=== PATIENT | male | born 1965 | race Caucasian/White ===

== ENCOUNTER 2019-07-10 09:22 | Outpatient (REF) | payer BC, SELFPAY ==
[2019-07-10 22:54] LABS: BUN 23 mg/dL (7-18); CREATININE 1.13 mg/dL (0.70-1.30); Calcium 9.1 mg/dL (8.5-10.1); Calculated LDL 196 mg/dL; Chloride 104 mmol/L (98-107); Cholesterol 278 mg/dL (50-200); Glucose 135 mg/dL (70-100); HDL Cholesterol 54 mg/dL (40-60); Potassium 4.4 mmol/L (3.5-5.1); Sodium 140 mmol/L (136-145); Triglyceride 142 mg/dL (30-150)
[2019-07-14 10:53] LABS: PSA, Screening 2.5 ng/ml (0-3.5)
== END 2019-07-10 09:42 ==
LOC: NCHCN 09:22
PROVIDERS: PCP Specialist/Technologist Athletic Trainer; Visit Provider Specialist/Technologist Athletic Trainer
DX: Z00.00 Encounter for general adult medical examination without abnormal findings (principal); Z13.220 Encounter for screening for lipoid disorders; Z13.228 Encounter for screening for other metabolic disorders; Z12.5 Encounter for screening for malignant neoplasm of prostate
CPT/HCPCS: 80048; 80061; 84153

== ENCOUNTER 2019-07-16 09:16 | Outpatient (REF) | payer BC, SELFPAY ==
[2019-07-16 20:16] LABS: Hemoglobin A1C 6.1 % (4.5-6.2)
== END 2019-07-16 09:36 ==
LOC: NCHCN 09:16
PROVIDERS: PCP Specialist/Technologist Athletic Trainer; Visit Provider Specialist/Technologist Athletic Trainer
DX: Z79.899 Other long term (current) drug therapy (principal)
CPT/HCPCS: 83036

== ENCOUNTER 2019-10-03 09:53 | Outpatient (REF) | payer BC, SELFPAY ==
[2019-10-03 19:46] LABS: ALT 42 U/L (16-63); AST 28 U/L (15-37); Albumin 4.1 g/dL (3.4-5.0); Alkaline Phosphatase 110 U/L (46-116); Bilirubin, Total 0.6 mg/dL (0.2-1.0); LDL CHOLESTEROL 84 mg/dL (<100); Total Protein 7.4 g/dL (6.4-8.2)
[2019-10-03 20:09] LABS: Bilirubin, Direct 0.13 mg/dL (0.00-0.20); Creatine Kinase 134 U/L (39-308)
== END 2019-10-03 10:13 ==
LOC: NCHCN 09:53
PROVIDERS: PCP Specialist/Technologist Athletic Trainer; Visit Provider Specialist/Technologist Athletic Trainer
DX: E78.5 Hyperlipidemia, unspecified (principal); Z51.81 Encounter for therapeutic drug level monitoring
CPT/HCPCS: 80076; 82550; 83721

== ENCOUNTER 2020-04-01 11:40 | Outpatient (REF) | payer BC, SELFPAY ==
[2020-04-01 19:18] LABS: Calculated LDL 163 mg/dL (<100); Cholesterol 243 mg/dL (<200); HDL Cholesterol 64 mg/dL (40-60); Triglyceride 82 mg/dL (<150)
[2020-04-05 12:26] LABS: Lyme Ab w Rflx to Lyme Confirm Negative (Negative)
[2020-04-05 17:21] LABS: Anaplasma phagocytophilum Negative (Negative); B. miyamotoi PCR Negative (Negative); Babesia divergens/MO-1 Negative (Negative); Babesia duncani Negative (Negative); Babesia microti Negative (Negative); Ehrlichia chaffeensis Negative (Negative); Ehrlichia ewingii/canis Negative (Negative); Ehrlichia muris eauclairensis Negative (Negative)
== END 2020-04-01 12:00 ==
LOC: NCHCN 11:40
PROVIDERS: PCP Specialist/Technologist Athletic Trainer; Visit Provider Nurse Practitioner Family
DX: E78.5 Hyperlipidemia, unspecified (principal); Z00.00 Encounter for general adult medical examination without abnormal findings
CPT/HCPCS: 80061; 87798; 86618

== ENCOUNTER 2020-05-19 15:59 | Outpatient (REF) | payer BC, SELFPAY ==
[2020-05-19 21:39] LABS: Abs Immature Grans 0.05 10^3/uL (0.0-0.06); Absolute Basophil Count 0.04 10^3/uL (0.0-0.2); Absolute Eosinophil Count 0.13 10^3/uL (0.0-0.7); Absolute Lymphocyte Count 1.46 10^3/uL (1.2-3.4); Absolute Monocyte Count 0.58 10^3/uL (0.1-0.8); Absolute Neutrophil Count 7.72 10^3/uL (1.2-6.7); Basophils % 0.4; Eosinophils % 1.3; HCT 46.2 % (40.0-50.0); HGB 16.4 g/dL (13.5-17.5); Immature Grans % 0.5; Lymphocytes % 14.6; MCH 32.9 pg (27.0-33.0); MCHC 35.5 % (32.0-36.0); MCV 92.8 fL (80-95); MPV 9.7 fL (8.0-11.0); Monocytes % 5.8; Neutrophils % 77.4; Nucleated RBC 0 %; Platelet Count 329 10^3/uL (130-400); RBC 4.98 10^6/uL (4.36-5.78); RDW 11.6 % (11.8-14.1); RDW-SD 39.4 fL; WBC 9.98 10^3/uL (4.4-10.8)
[2020-05-19 22:00] LABS: ALT 57 U/L (16-63); AST 31 U/L (15-37); Albumin 4.2 g/dL (3.4-5.0); Alkaline Phosphatase 102 U/L (46-116); BUN 18 mg/dL (7-18); Bilirubin, Total 0.4 mg/dL (0.2-1.0); CREATININE 0.96 mg/dL (0.70-1.30); Calcium 9.6 mg/dL (8.5-10.1); Chloride 100 mmol/L (98-107); Glucose 121 mg/dL (74-106); Potassium 4.1 mmol/L (3.5-5.1); Sodium 139 mmol/L (136-145); TSH (W/Ref FT4) 1.03 uIU/mL (0.36-3.74); Total Protein 7.7 g/dL (6.4-8.2)
== END 2020-05-19 16:19 ==
LOC: NCHCN 15:59
PROVIDERS: PCP Specialist/Technologist Athletic Trainer; Visit Provider Physician Assistant Medical
DX: R42 Dizziness and giddiness (principal); R00.1 Bradycardia, unspecified
CPT/HCPCS: 80053; 84443; 85025

== ENCOUNTER 2020-06-01 05:22 | Outpatient (CLI) | payer BC, SELFPAY | END 2020-06-01 05:42 | PROVIDERS: PCP Specialist/Technologist Athletic Trainer; Visit Provider Nurse Practitioner Family | DX: R00.1 Bradycardia, unspecified (principal); I49.1 Atrial premature depolarization; I49.3 Ventricular premature depolarization | CPT/HCPCS: 93225 ==

== ENCOUNTER 2020-06-04 11:54 | Outpatient (CLI) | payer BC, SELFPAY ==
--- NOTE | 2020-06-04 14:06 | W.HOLTRPT ---
Date of service: 06/04/20 Time of Service: 14:07 Holter Monitor Report Referring Provider:: Tenzin Indications:: Bradycardia Holter Monitor Note: This is a 48-hour Holter monitor ordered for indication of bradycardia. ?Patient was in normal sinus rhythm for the majority recording with an average heart rate of 69 bpm (44 bpm - 128 bpm) ?The patient had 0 episodes of supraventricular tachycardia nor any episodes of ventricular tachycardia. ?There were 6 total PACs and no PVCs. ?There were no episodes of atrial fibrillation no pauses greater then 3 seconds no evidence of high degree heart block.
== END 2020-06-04 12:14 ==
PROVIDERS: PCP Specialist/Technologist Athletic Trainer; Visit Provider Nurse Practitioner Family
DX: R00.1 Bradycardia, unspecified (principal); I49.1 Atrial premature depolarization; I49.3 Ventricular premature depolarization
CPT/HCPCS: 93226

== ENCOUNTER 2021-02-17 17:16 | Outpatient (REF) | payer BC, SELFPAY ==
[2021-02-17 19:47] LABS: Hemoglobin A1C 6.3 % (<5.7)
[2021-02-17 19:49] LABS: Anion Gap 10.3 mmol/L (3-11); BUN 18 mg/dL (7-18); CO2 25.7 mmol/L (21.0-32.0); Calcium 9.3 mg/dL (8.5-10.1); Calculated LDL 183 mg/dL (<100); Chloride 100 mmol/L (98-107); Cholesterol 278 mg/dL (<200); Glucose 106 mg/dL (74-106); HDL Cholesterol 63 mg/dL (40-60); Potassium 3.6 mmol/L (3.5-5.1); Sodium 136 mmol/L (136-145); Triglyceride 161 mg/dL (<150)
== END 2021-02-17 17:17 | disposition home or self-care (01) ==
LOC: NCHCN 17:16
PROVIDERS: PCP Specialist/Technologist Athletic Trainer; Visit Provider Nurse Practitioner Family
DX: Z00.00 Encounter for general adult medical examination without abnormal findings (principal); Z13.1 Encounter for screening for diabetes mellitus; Z13.220 Encounter for screening for lipoid disorders; Z13.228 Encounter for screening for other metabolic disorders
CPT/HCPCS: 80048; 80061; 83036

== ENCOUNTER 2022-02-17 19:09 | Outpatient (REF) | payer BC, SELFPAY ==
[2022-02-17 15:50] LABS: Hemoglobin A1C 6.7 % (<5.7)
[2022-02-17 16:09] LABS: Anion Gap 11.6 mmol/L (3-11); BUN 17 mg/dL (7-18); CO2 26.4 mmol/L (21.0-32.0); Calcium 9.4 mg/dL (8.5-10.1); Calculated LDL 107 mg/dL (<100); Chloride 102 mmol/L (98-107); Cholesterol 194 mg/dL (<200); Glucose 143 mg/dL (74-106); HDL Cholesterol 67 mg/dL (40-60); Potassium 3.8 mmol/L (3.5-5.1); Sodium 140 mmol/L (136-145); Triglyceride 103 mg/dL (<150)
== END 2022-02-17 19:10 | disposition home or self-care (01) ==
LOC: NCHCN 19:09
PROVIDERS: PCP Specialist/Technologist Athletic Trainer; Visit Provider Nurse Practitioner Family
DX: Z00.00 Encounter for general adult medical examination without abnormal findings (principal); I10 Essential (primary) hypertension; E78.5 Hyperlipidemia, unspecified; R73.03 Prediabetes
CPT/HCPCS: 80048; 80061; 83036

== ENCOUNTER → 2022-02-24 00:39 | Outpatient (CLI) | payer BC, SELFPAY ==
--- NOTE | 2022-02-24 09:12 | DI.RAD_ITS ---
Exam(s) XR HAND RT COMPLETE EXAM: XR HAND RT COMPLETE CLINICAL HISTORY: RT THUMB PAIN, M79.644. TECHNIQUE: 2D digital imaging was performed of the right hand. Three images were obtained. AP, late ral and oblique views were obtained. COMPARISON: No exams were available for comparison FINDINGS: BONES: No acute fracture is present. No bony destructive lesion is seen. JOINTS: No dislocation present. There are marked degenerative changes seen at the 1st CMC joint with joint space narrowing, subchondral sclerosis and cysts and hypertrophic changes. More mild degenerat don changes are seen in the interphalangeal joints of the hand with joint space narrowing and periart icular spurring present. The findings are most marked at the DIP joint of the middle finger. SOFT TISSUE: Normal. 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 DATA REPOSITORY: RADIATION DOSE DELIVERED:
== END ==
PROVIDERS: PCP Specialist/Technologist Athletic Trainer; Visit Provider Nurse Practitioner Family
DX: M79.641 Pain in right hand (principal); M79.644 Pain in right finger(s); M18.11 Unilateral primary osteoarthritis of first carpometacarpal joint, right hand; M25.541 Pain in joints of right hand
CPT/HCPCS: 73130

== ENCOUNTER 2022-07-13 07:04 | Day surgery (SDC) | payer BC, SELFPAY ==
--- NOTE | 2022-07-13 05:34 | W.PM.DSUDISC ---
Discharge Plan Disposition Patient Disposition: HOME Condition: Good Discharge Details Reason For Visit: Screening colonoscopy Attending Provider: Shalom Merrill Primary Care Provider: Elvira Barker Home Meds and New Rx's Prescriptions: Continued chlorthalidone 25 mg tablet 25 mg PO DAILY atorvastatin 40 mg tablet 40 mg PO DAILY amlodipine 10 mg tablet 10 mg PO DAILY losartan 50 mg tablet 50 mg PO DAILY Discontinued bisacodyl [Dulcolax (bisacodyl)] 5 mg tablet,delayed release (DR/EC) 5 mg PO ONCE Qty: 4 0RF Rx Instructions: Take according to provider's instructions for colonoscopy prep. polyethylene glycol 3350 17 gram/dose powder 17 g PO ONCE Qty: 238 0RF Rx Instructions: To be taken as directed by prescriber's office for colonoscopy prep. Discharge Instructions Instructions: Diverticulosis (DC), Colorectal Polyps (GEN) Additional Instructions: 1. If tolerated, consume a soft, low fiber diet for 1-2 days. 2[address] Do not drive, drink alcohol, operate machinery, make critical decisions, or do activities that require coordination or balance for 24 hours. 3. Because air was put into your colon during the procedure, expelling air from your rectum (passing gas or farting) is normal. 4. You may not have a bowel movement for 1-3 days because of the colonoscopy prep. This is normal. 5. Go directly to the emergency room if you notice any of the following: Develop chills (warm to touch), or if you have a thermometer and your temperature is above 101 Difficulty breathing or difficultly swallowing Persistent vomiting Severe abdominal pain, other than gas cramps Severe chest pain Black, tarry stools Any bleeding ? exceeding one tablespoon 6. Call your physician if the site where your intravenous was started becomes red, swollen, painful, and warm to touch. 7. Your physician has reviewed your pre-procedure medications. Please continue to take those medications as previously ordered. You will be given specific information/education regarding any changes to your medications before leaving. Activity:: Activity as Tolerated Diet:: As Tolerated Discharge Orders Discharge Orders: Discharge Order (Routine); Ordered 07/13/22 Ordered By: Shalom Merrill DS: Diagnosis Discharge Diagnosis (1) Colon polyp: Status: Acute Asessment and Plan: I will contact you with results of the biopsy
--- NOTE | 2022-07-13 05:36 | W.COLOREPORT ---
Colonoscopy Report Date of procedure: 07/13/22 Pre-op diagnosis general: Screening colonoscopy routine health maintenance Post-op diagnosis procedure note: other (Diverticulosis, colorectal) Procedure: Screening colonoscopy Surgeon: Shalom Merrill Anesthesia Type: General:No Airway Estimated blood loss (mL): 30 Pathology: other (Cecal polyps x2, colorectal polyp at 75 cm) Complications: None Disposition: same day Indications: Charles is a 57-year-old male here for his screening colonoscopy Prep: Miralax/Dulcolax Procedure Start Time: 08:14 Procedure End Time: 08:40 Retraction Time: 18 Procedure Description: After the induction of monitored anesthetic care, and with the patient in left lateral decubitus position, I began by performing an external anorectal exam.? Perineum and skin were normal, as was the anal verge.? There was no evidence of external hemorrhoids.? Next, I performed a digital rectal exam.? I did not appreciate any abnormal findings.? Next, I advanced a colonoscope into the rectal vault.? I performed retroflexion.? I did not see signs of pathologic internal hemorrhoids.? Using insufflation, I then advanced the colonoscope beyond the rectal folds and into the sigmoid colon before advancing towards the cecum.? There was moderate sigmoid diverticulosis. the quality of the prep was at.? The scope was noted to be in the cecum by identification of the ileocecal valve and appendiceal orifice.? Adjacent to the ileocecal valve I identified 2 cecal polyps. The first was approximately 1 cm. I removed this with cold biopsy forceps. There was no bleeding. It was a bit pedunculated. The second polyp was more sessile. It was approximately 1 and half centimeters by 1 and half centimeters. I retrieved this using hot snare. There was no bleeding. I then began withdrawing the colonoscope using repeated irrigation as necessary for full evaluation of the colonic mucosa. Around 75 cm from the anal verge I identified a 0.5 cm polyp. ?It appeared sessile in character. ?I was able to remove this with a cold forcep. ?I examined the site, and there was minimal bleeding. ?Once this was completed, I continued to withdraw the scope and examine the remainder of the colonic mucosa.?Once the scope was withdrawn to the level of the rectum, great care was taken to examine portions of the rectal folds.? Finally, the scope was withdrawn and the patient was brought to the same-day surgery recovery unit as the anesthetic wore off. ?The findings and instructions were shared with the patient prior to discharge.
[2022-07-13 07:23] VITALS: BP 122/85; PULSE 60; RESP 16; TEMP 36.4; O2SAT 97
--- NOTE | 2022-07-13 07:33 | W.ANESPRE ---
General Info Date of Service Date Performed: 07/13/22 Height: 5 ft 9 in Weight: 94.2 kg Body Mass Index (BMI): 30.7 Surgical Procedure: Operation Date: 07/13/22 08:20 Proposed Procedure Side Surgeon p Colonoscopy Shalom Merrill MD Meds Allergies and Home Medications Allergies Allergy/AdvReac Type Severity Reaction Status Date / Time lisinopril Allergy Intermediate Verified 07/13/22 07:29 Home Medication Medication Instructions Recorded amlodipine 10 mg tablet 10 mg PO DAILY 02/23/22 atorvastatin 40 mg tablet 40 mg PO DAILY 02/23/22 chlorthalidone 25 mg tablet 25 mg PO DAILY 02/23/22 losartan 50 mg tablet 50 mg PO DAILY 02/23/22 Current Visit Medications: Current Medications Generic Name Dose Route Start Last Admin Trade Name Freq PRN Reason Stop Dose Admin Hyoscyamine Sulfate 0.125 mg 07/13/22 05:36 Hyoscyamine 0.125 Mg Sl/Oral/Chew SL DIRECTED PRN Ringer's Solution 1,000 mls @ 80 mls/hr 07/13/22 06:00 IV 08/11/22 23:59 [facility] IV Miscellaneous Supplies 1 each 07/13/22 06:00 Iv Access IV 08/11/22 23:59 DIRECTED ÁNGEL Ondansetron HCl 4 mg 07/13/22 05:36 Ondansetron 4 Mg/2 Ml Vial IVP Q4H PRN PRN Nausea / Vomiting Sodium Chloride 0 ml 07/13/22 06:00 Normal Saline Flush 10 Ml Syr IV 08/11/22 23:59 PRN PRN Sodium Chloride 0 ml 07/13/22 06:00 Normal Saline 10 Ml Vial IJ 08/11/22 23:59 DIRECTED PRN Sterile Water 0 ml 07/13/22 06:00 Water,Injection,Sterile 10 Ml Vial IJ 08/11/22 23:59 DIRECTED PRN PFSH Active Problems Active Problems: Problem Status Onset Code Colon polyp Bradycardia R00.1 Screening for colon cancer Z12.11 Medical History Medical History (Updated 07/13/22 @ 07:29 by Dinorah Burks) BPPV (benign paroxysmal positional vertigo) Bright red blood per rectum Community acquired pneumonia Dizziness Erythema Erythema chronicum migrans History of prediabetes Hx of adenomatous polyp of colon Hyperlipidemia Hypertension Low back pain Medication monitoring encounter Rhinorrhea Stress at work Thumb pain Tooth abscess 2 teeth removed; 9/22 Umbilical hernia Vertigo Vision changes Surgical History Surgical History Colonoscopy - IV Sedation Repair of umbilical hernia Vasectomy Tobacco Smoking/Tobacco Use Status: Current every day Tobacco Type: smokeless tobacco Alcohol Alcohol Intake: current Alcohol intake frequency: 0-2 drinks per day Alcohol type: beer Substance Use Substance use: Never Substance use type: does not use Vital Signs and Lab Results Vital Signs Most Recent Vital Signs in EMR: Most Recent Vital Signs Temp Pulse Resp BP Pulse Ox 36.4 C L 60 16 122/85 97 07/13/22 07:23 07/13/22 07:23 07/13/22 07:23 07/13/22 07:23 07/13/22 07:23 Lab Results Blood Type / Crossmatch: No Data to Display Complete Blood Count: No Data to Display Complete Metabolic Panel: No Data to Display Liver Function Panel: No Data to Display Coagulation Panel: No Data to Display Cardiac Panel: No Data to Display Arterial Blood Gas: No Data to Display Venous Blood Gas: No Data to Display Pancreas Panel: No Data to Display Thyroid Panel: No Data to Display Infectious Disease: No Data to Display Blood Cultures: No Data to Display Toxicology Panel: No Data to Display Anesthesia Assessment and Plan Anesthesia History Personal History: No History of Anesthesia Complications Family History: No Family History of Anesthesia Complications Exercise Tolerance Exercise Tolerance: Metabolic Equivalents>4 Pertinent Negatives Pertinent Negatives: No Symptoms of GERD, No Major Cardiovascular Symptoms or Complaints, No Major Pulmonary Symptoms or Complaints and No History of CVA/TIA Cardiac & Pulmonary Exam Cardiac Exam: Normal S1/S2 Heart Sounds Pulmonary Exam: Clear Bilateral Breath Sounds Implantable Cardiac Device Does patient have a Pacemaker or an ICD?: No Airway Exam Known Difficult Airway: No Mallampati Class: 1 Mouth Opening: Normal (> 3cm) Thyromental Distance: Greater than 3 cm Neck Range of Motion: Full ROM Neck Circumference: Normal Teeth Condition: Normal Dentition Airway Comments: 2 teeth top left pulled last month due to abscess. Antibiotic regimen completed. ASA Classification ASA Score: ASA 2 Emergency Case?: No NPO Status NPO Status: NPO Clears >2 hours, Solids >8 hours Anesthesia Plan Resuscitation Status: Full Code Anesthesia Technique: General Anesthesia Airway Planned: Natural Airway Monitors Used: Standard Monitors Preoperative Comments:: Uses snuff, none today.
[2022-07-13] MEDS: Lactated Ringers 1,000 ML 80 ML IV (07:40)
[2022-07-13 07:46] VITALS: BMI 30.7
--- NOTE | 2022-07-13 08:25 | BOWEL_PTH ---
PATIENT: Charles Castro LOC: [facility] U#:[id number] AGE/SX: 57/M ROOM: RE07/13/[address]: Shalom Merrill MD : [id number] BED: DIS: 07/13/2022 SPEC #: [id number] RECD: 07/13/22 12:43 STATUS: DELIO RE #: [id number] TRENT: 07/13/22 08:[address]: Shalom Merrill DEPT: Surgical Specimen RECD BY: Rupa Lopez ENTERED: 07/13/22 12:45 SP TYPE: Bowel OTHR DR: Elvira Barker Tissues: 1 - BIOPSY BOWEL 2 - BIOPSY BOWEL 3 - BIOPSY BOWEL Procedures: GROSS AND MICRO LEVEL 4 Comments: [id number]
[2022-07-13 08:45] VITALS: BP 108/75; PULSE 59; RESP 16; TEMP 36.3; O2SAT 92
--- NOTE | 2022-07-13 09:11 | W.ANESPOSTOP ---
Postoperative Evaluation Date, Time and Location Date Performed: 07/13/22 Time Performed: 08:55 Patient Location: Day Surgery Unit Vital Signs Most Recent Imported Vital Signs: Most Recent Vital Signs Temp Pulse Resp BP Pulse Ox 36.3 C L 59 L 16 108/75 92 07/13/22 08:45 07/13/22 08:45 07/13/22 08:45 07/13/22 08:45 07/13/22 08:45 Pain Score Most Recent Pain Score: Most Recent Pain Score Pain Level 0 07/13/22 07:23 Assessment Mental Status: Awake (Alert & Oriented to Patient Baseline) Airway and Respiratory Function: Patent airway with normal (patient baseline) respiratory exam Cardiovascular Function: Hemodynamically Stable Hydration Status: Adequately Hydrated Nausea & Vomiting: No Nausea or Vomiting Pain: Pt. Denies Any Pain Peripheral Nerve Block: Patient did not receive a nerve block
[2022-07-13 09:15] VITALS: BP 139/85; PULSE 59; RESP 16; TEMP 36.2; O2SAT 96
== END 2022-07-13 09:30 | disposition home or self-care (01) ==
PROVIDERS: PCP Nurse Practitioner Family; Visit Provider Surgery
PROC: 0DJD8ZZ Inspection of Lower Intestinal Tract, Via Natural or Artificial Opening Endoscopic (ICD-10-PCS; CPT 45378; principal; 2022-07-13 08:15)
DX: Z12.11 Encounter for screening for malignant neoplasm of colon (principal); Z86.010 Personal history of colon polyps; K57.30 Diverticulosis of large intestine without perforation or abscess without bleeding; K63.5 Polyp of colon
CPT/HCPCS: 45385; 45380; 88305

== ENCOUNTER 2022-07-27 14:19 | Outpatient (REF) | payer BC, SELFPAY ==
[2022-07-27 15:24] LABS: Hemoglobin A1C 6.7 % (<5.7)
[2022-07-27 15:58] LABS: ALT 51 U/L (16-63); AST 32 U/L (15-37)
== END 2022-07-27 14:20 | disposition home or self-care (01) ==
LOC: NCHCN 14:19
PROVIDERS: PCP Nurse Practitioner Family; Visit Provider Nurse Practitioner Family
DX: R73.03 Prediabetes (principal); R74.8 Abnormal levels of other serum enzymes; M72.2 Plantar fascial fibromatosis; M79.644 Pain in right finger(s)
CPT/HCPCS: 83036; 84450; 84460

== ENCOUNTER 2022-09-05 10:26 | Outpatient (CLI) | payer BC, SELFPAY ==
--- NOTE | 2022-09-05 11:14 | DI.RAD_ITS ---
Exam(s) XR CHEST 2V PA LATERAL EXAM: XR CHEST 2V PA LATERAL CLINICAL HISTORY: COUGH, R05.8; COVID-19 INFECTION, U07.1 TECHNIQUE: 2D digital imaging was performed of the chest. Two images were obtained. PA and lateral views were obtained. COMPARISON: CR CHEST 2 VIEWS PA,LAT from 11/03/2014 FINDINGS: MEDIASTINUM: Normal. HEART: Normal. PULMONARY VASCULATURE: Normal. LUNGS: Clear. PLEURAL SPACE: No pleural effusion or pneumothorax. BONE:Within normal limits for the patient's age. OTHER FINDINGS:Normal. IMPRESSION: No acute pulmonary findings. DATA REPOSITORY: RADIATION DOSE DELIVERED:
== END 2022-09-05 10:46 ==
LOC: DI 10:29
PROVIDERS: PCP Nurse Practitioner Family; Visit Provider Physician Assistant Medical
DX: R05.8 Other specified cough (principal); U07.1 COVID-19
CPT/HCPCS: 71046

== ENCOUNTER 2022-09-05 11:23 | Outpatient (REF) | payer BC, SELFPAY ==
[2022-09-05 15:33] LABS: Abs Immature Grans 0.04 10^3/uL (0.0-0.06); Absolute Basophil Count 0.05 10^3/uL (0.0-0.2); Absolute Eosinophil Count 0.15 10^3/uL (0.0-0.7); Absolute Lymphocyte Count 0.86 10^3/uL (1.2-3.4); Absolute Monocyte Count 1.37 10^3/uL (0.1-0.8); Absolute Neutrophil Count 10.18 10^3/uL (1.2-6.7); Basophils % 0.4; Eosinophils % 1.2; HCT 42.7 % (40.0-50.0); HGB 15.2 g/dL (13.5-17.5); Immature Grans % 0.3; Lymphocytes % 6.8; MCH 32.6 pg (27.0-33.0); MCHC 35.6 % (32.0-36.0); MCV 92 fL (80-95); MPV 9.7 fL (8.0-11.0); Monocytes % 10.8; Neutrophils % 80.5; Platelet Count 320 10^3/uL (130-400); RBC 4.66 10^6/uL (4.36-5.78); RDW 11.5 % (11.8-14.1); RDW-SD 38.2 fL; WBC 12.65 10^3/uL (4.4-10.8)
[2022-09-05 16:15] LABS: ALT 59 U/L (16-63); AST 36 U/L (15-37); Albumin 4.3 g/dL (3.4-5.0); Alkaline Phosphatase 128 U/L (46-116); Anion Gap 10.1 mmol/L (3-11); BUN 14 mg/dL (7-18); Bilirubin, Total 0.6 mg/dL (0.2-1.0); CO2 27.9 mmol/L (21.0-32.0); CREATININE 0.9 mg/dL (0.70-1.30); Calcium 9.2 mg/dL (8.5-10.1); Chloride 100 mmol/L (98-107); Estimated GFR 98.38 (mL/min/1.73m2); Glucose 143 mg/dL (74-106); Potassium 3.8 mmol/L (3.5-5.1); Sodium 138 mmol/L (136-145); Total Protein 7.7 g/dL (6.4-8.2)
== END 2022-09-05 11:24 | disposition home or self-care (01) ==
LOC: NCHCN 11:23
PROVIDERS: PCP Nurse Practitioner Family; Visit Provider Physician Assistant Medical
DX: U07.1 COVID-19 (principal); R05.8 Other specified cough
CPT/HCPCS: 80053; 85025

== ENCOUNTER 2022-09-14 10:51 | Outpatient (CLI) | payer BC, SELFPAY ==
[2022-09-14 11:34] LABS: D-Dimer 491 ng/mlFEU (<500)
== END 2022-09-14 10:52 | disposition home or self-care (01) ==
LOC: LBO 11:05
PROVIDERS: PCP Nurse Practitioner Family; Visit Provider Physician Assistant Medical
DX: U07.1 COVID-19 (principal); R05.8 Other specified cough
CPT/HCPCS: 36415; 85379

== ENCOUNTER 2022-09-28 11:43 | Outpatient (CLI) | payer BC, SELFPAY ==
--- NOTE | 2022-09-28 13:58 | DI.US_ITS ---
APPROVED REPORT EXAM: Comprehensive 2D, Doppler, and color-flow Echocardiogram Other Information Study Quality: Adequate Conclusion Normal left ventricular chamber size and wall thickness. Estimated ejection fraction is 60%. Wall m otion is normal Normal right ventricular size and systolic function Both atria are normal in size Aortic valve is trileaflet and mildly sclerotic with trace regurgitation Mildly dilated ascending aorta measuring 3.76 cm Estimated right ventricular systolic pressure is 26 mmHg Wall motion Left Ventricle The left ventricle is normal size. The left ventricular systolic function is normal. The left ventric ular ejection fraction is within the normal range. There is normal left ventricular wall thickness. T here is normal LV segmental wall motion. There is no ventricular septal defect visualized. LVEF is 60 %. Right Ventricle The right ventricle is normal size. The right ventricular systolic function is normal. The RVSP is 26 .0 mmHg. Atria The left atrium size is normal. The right atrium size is normal. The interatrial septum is intact wit h no evidence for an atrial septal defect. Aortic Valve The Aortic valve is mildly sclerotic. Aortic valve is trileaflet. There is no aortic valvular stenosi s. Trace aortic regurgitation. Mitral Valve The mitral valve is normal in structure. No evidence of mitral valve stenosis. Trace mitral regurgita tion. Tricuspid Valve The tricuspid valve is normal in structure. There is no tricuspid valve stenosis. Trace tricuspid reg urgitation. Pulmonic Valve The pulmonary valve is normal in structure. There is no pulmonic valvular stenosis. Trace pulmonic re gurgitation. Great Vessels The aortic root is normal in size. The ascending aorta is mildly dilated. Aortic arch is normal in ca liber. IVC is normal in size and collapses >50% with inspiration. Pericardium There is no pericardial effusion. 2D Dimensions IVSD d PLAX 0.85 cm M: 0.6-1.2 LV Vol A2C d MOD 108.0 mL LVPW d PLAX 0.83 cm M: 0.6 - 1.2 LV Vol A4C d MOD 98.1 mL LVID d PLAX 4.75 cm M: 4.2 - 5.8 LA vol/ BSA A2C s A-L 22.2 mL/m2 LVDs 3.05 cm M: 2.5 - 4.0 LA vol/ BSA A4C s A-L 16.3 mL/m2 Ao Root d 3.39 cm M: 3.1 - 3.7 LA Vol/ BSA Biplane s A-L 19.8 mL/m2 RA Area A4C 12.38 cm2 LA Area A4C s MOD 14.54 cm2 RA Vol/ BSA A4C s A-L 14.3 mL/m2 LA Area A2C s MOD 16.30 cm2 Ao Asc Diam d 3.76 cm M: 2.6 - 3.4 LV EF A4C MOD 61.2 % LV EF Teichholz 64.0 % LV EF A2C MOD 59.9 % LVEF (Casillas's) 60.84 % M: 52 - 72 LV EF Biplane MOD 60.8 % LV Volume 76.83 mL M: 62 - 150 SV 63.30 mL LV Volume Index 36.58 mL/m2 M: 34 - 74 SV Index 30.20 mL/m2 LV Vol Biplane MOD 104.0 mL FS 34.80 % M-Mode TAPSE 2.56 cm (M/F) >1.7 LV Diastology MV E' medial 0.078 (>0.07 m/s) E/A Ratio 0.8 LV E/e MED 7.25 (<14) MV E Vmax 0.57 (0.4-1.3 m/s) MV E' lateral 0.112 (>0.1 m/s) MV A Vmax 0.70 (0.4-1.3 m/s) LV E/e LAT 5.05 (<14) MV E/A Ratio 0.76 MV E/E' medial 7.27 MV E/E' lateral 5.06 Aortic Valve LVOT Area 2.94 cm2 AoV Area Vmax 2.81 cm2 LVOT Vmax 1.29 m/s AoV Area/ BSA (Vmax) 1.34 cm2/m2 LVOT Mean Sedrick. 0.76 m/s DAT Mean Sedrick. 2.46 cm2 LVOT Peak Grad 6.6 mmHg DAT Mean Sedrick. Index 1.17 cm2/m2 LVOT Mean Grad 2.8 mmHg AR DT 2086 msec LVOT VTI 0.221 m AR PHT 605 msec LVOT Diam s 1.90 cm AoV Vmax 1.35 m/s Velocity Ratio 0.96 AoV Mean Sedrick. 0.91 m/s AoV Peak Grad 7.2 mmHg LVOT SV 64.88 mL AoV Mean Grad 3.8 mmHg AoV VTI 0.217 m AoV Area VTI 2.99 cm2 AoV Area/ BSA (VTI) 1.43 cm/m2 Mitral Valve MV DT 376 (160-240 msec) MV PHT 109 msec MV Area PHT 2.02 cm2 MV VTI 0.254 m MV Area VTI 2.56 (4.0-6.0 cm2) Pulmonary Valve PV Vmax 0.80 (0.5-1.5 m/s) RVOT Peak Gr. 1.16 mmHg PV Peak Grad 2.6 mmHg RVOT Mean Gr. 0.60 mmHg PV Mean Grad 1.4 mmHg RVOT VTI 0.101 m PV VTI 0.126 m RVOT Vmax 0.54 m/s Tricuspid Valve TR Peak Grad 22.9 mmHg TR Vmax 2.40 m/s RA Pressure 3.00 mmHg RVSP (TR) 26.0 mmHg
== END 2022-09-28 12:03 ==
LOC: DI 11:44
PROVIDERS: PCP Nurse Practitioner Family; Visit Provider Physician Assistant Medical
DX: R00.1 Bradycardia, unspecified (principal); I77.819 Aortic ectasia, unspecified site
CPT/HCPCS: 93306

== ENCOUNTER 2022-11-09 10:22 | Outpatient (REF) | payer BC, SELFPAY ==
[2022-11-09 15:38] LABS: HCT 42.5 % (40.0-50.0); HGB 14.8 g/dL (13.5-17.5); MCH 31.5 pg (27.0-33.0); MCHC 34.8 % (32.0-36.0); MCV 90 fL (80-95); MPV 9.7 fL (8.0-11.0); Platelet Count 311 10^3/uL (130-400); RDW 11.5 % (11.8-14.1)
[2022-11-09 16:22] LABS: Hemoglobin A1C 6.5 % (<5.7)
[2022-11-09 16:23] LABS: ALT 49 U/L (16-63); AST 24 U/L (15-37); Albumin 4.1 g/dL (3.4-5.0); Alkaline Phosphatase 109 U/L (46-116); Anion Gap 10.6 mmol/L (3-11); BUN 17 mg/dL (7-18); Bilirubin, Total 0.5 mg/dL (0.2-1.0); CO2 27.4 mmol/L (21.0-32.0); CREATININE 0.9 mg/dL (0.70-1.30); Calcium 9.5 mg/dL (8.5-10.1); Chloride 101 mmol/L (98-107); Estimated GFR 98.38 (mL/min/1.73m2); Glucose 140 mg/dL (74-106); Potassium 4.2 mmol/L (3.5-5.1); Sodium 139 mmol/L (136-145); Total Protein 7.3 g/dL (6.4-8.2)
== END 2022-11-09 10:23 | disposition home or self-care (01) ==
LOC: NCHCN 10:22
PROVIDERS: PCP Nurse Practitioner Family; Visit Provider Nurse Practitioner Family
DX: E11.9 Type 2 diabetes mellitus without complications (principal); M79.644 Pain in right finger(s)
CPT/HCPCS: 80053; 85027; 83036

== ENCOUNTER 2023-02-22 14:20 | Outpatient (REF) | payer BC, SELFPAY ==
[2023-02-22 15:37] LABS: ALT 61 U/L (16-63); AST 36 U/L (15-37); Albumin 4.3 g/dL (3.4-5.0); Alkaline Phosphatase 108 U/L (46-116); BUN 23 mg/dL (7-18); Bilirubin, Total 0.7 mg/dL (0.2-1.0); CREATININE 1.1 mg/dL (0.70-1.30); Calcium 9.2 mg/dL (8.5-10.1); Calculated LDL 95 mg/dL (<100); Chloride 100 mmol/L (98-107); Cholesterol 182 mg/dL (<200); Estimated GFR 76.85 (mL/min/1.73m2); Glucose 139 mg/dL (74-106); HDL Cholesterol 70 mg/dL (40-60); Potassium 3.7 mmol/L (3.5-5.1); Sodium 136 mmol/L (136-145); Triglyceride 86 mg/dL (<150)
[2023-03-02 09:29] LABS: PSA, Screening 2.1 ng/mL (<=4.5)
== END 2023-02-22 14:21 | disposition home or self-care (01) ==
LOC: NCHCN 14:20
PROVIDERS: PCP Nurse Practitioner Family; Visit Provider Nurse Practitioner Family
DX: E11.9 Type 2 diabetes mellitus without complications (principal); R74.8 Abnormal levels of other serum enzymes; E78.5 Hyperlipidemia, unspecified
CPT/HCPCS: 80053; 80061; 84153

== ENCOUNTER 2024-11-06 15:34 | Outpatient (REF) | payer BC, SELFPAY ==
[2024-11-06 19:39] LABS: Hemoglobin A1C 7.1 % (<5.7)
[2024-11-06 20:15] LABS: ALT 56 U/L (16-63); AST 33 U/L (15-37); Albumin 4.1 g/dL (3.4-5.0); Alkaline Phosphatase 105 U/L (46-116); Anion Gap 7.3 mmol/L (3-11); BUN 17 mg/dL (7-18); Bilirubin, Total 0.63 mg/dL (0.2-1.0); CO2 28.7 mmol/L (21.0-32.0); Calcium 9.4 mg/dL (8.5-10.1); Chloride 103 mmol/L (98-107); Estimated GFR 85.63 (mL/min/1.73m2); Glucose 129 mg/dL (74-106); Potassium 4.1 mmol/L (3.5-5.1); Sodium 139 mmol/L (136-145); Total Protein 7.3 g/dL (6.4-8.2)
[2024-11-06 20:16] LABS: Calculated LDL 69 mg/dL (<100); Cholesterol 156 mg/dL (<200); HDL Cholesterol 73 mg/dL (40-60); Triglyceride 73 mg/dL (<150)
[2024-11-06 20:40] LABS: COMMENT (LAB VIEW ONLY) 123.57 mg/dL; Microalb ug/mg Crea 6.4 ug/mg Cr
[2024-11-07 18:53] LABS: PSA, Diagnostic 2.1 ng/mL (<=4.5)
[2024-11-07 19:33] LABS: HIV-1/2 Ag & Ab Screen Negative (Negative)
[2024-11-07 19:36] LABS: Hepatitis C Ab w Rflx HCV PCR Negative (Negative)
== END 2024-11-06 15:35 | disposition home or self-care (01) ==
LOC: NCHCN 15:34
PROVIDERS: PCP Nurse Practitioner Family; Visit Provider Nurse Practitioner Family
DX: Z00.00 Encounter for general adult medical examination without abnormal findings (principal); E78.5 Hyperlipidemia, unspecified; E11.9 Type 2 diabetes mellitus without complications; I10 Essential (primary) hypertension
CPT/HCPCS: 80053; 80061; 86803; 87389; 82043; 82570; 83036; 84153